=== PATIENT | male | born 1980 | race Caucasian/White ===

== ENCOUNTER 2021-06-05 17:10 | Emergency (ER) | payer OTHER ==
[~2021-06-05] VITALS: Ht 175.3 cm; Wt 89.4 kg
== END 2021-06-05 21:40 | disposition home or self-care (01) ==
LOC: ED 17:10
DX: G89.29 Other chronic pain (principal); M54.50 Low back pain, unspecified
CPT/HCPCS: 99283

== ENCOUNTER 2022-02-20 12:56 | Emergency (ER) | payer OTHER ==
[~2022-02-20] VITALS: Ht 175.3 cm; Wt 88.5 kg
[2022-02-20] MEDS ORDERED: AMOX TR-K CLV1 EAC1 PO (18:57)
== END 2022-02-20 19:23 | disposition home or self-care (01) ==
LOC: ED 12:56
DX: K57.32 Diverticulitis of large intestine without perforation or abscess without bleeding (principal)
CPT/HCPCS: 36415; 74177; 80053; 81001; 85025; 96375; 99284-25; J1885; J2543; Q9967